=== PATIENT | female | born 1940 | race Caucasian/White ===

== ENCOUNTER → 2019-12-25 | Outpatient (CLI) | payer MEDICARE | LOC: COL.RAD 12:50 | DX: I65.23 Occlusion and stenosis of bilateral carotid arteries (principal); E78.5 Hyperlipidemia, unspecified; I10 Essential (primary) hypertension; F17.218 Nicotine dependence, cigarettes, with other nicotine-induced disorders; J43.9 Emphysema, unspecified; E01.0 Iodine-deficiency related diffuse (endemic) goiter; R91.1 Solitary pulmonary nodule | CPT/HCPCS: Q9967 ==

== ENCOUNTER 2020-11-03 13:37 | Inpatient (IN) | payer MEDICARE ==
[~2020-11-03] VITALS: Ht 170.2 cm; Wt 78.1 kg
[2020-11-03 14:36] LABS: BASO % 0.3 % (0.0-2.0); GRAN # 4.6 (1.4-6.5); GRAN % 68.9 % (42.2-75.2); HEMATOCRIT 45.9 % (37.0-47.0); HEMOGLOBIN 15.4 g/dl (12.5-16.0); LYMPH # 1.2 (1.2-3.4); MEAN CELL VOLUME 87 fl (80.0-100.0); MEAN CORPUSCULAR HEMOGLOBIN 29 pg (27.0-31.0); MEAN CORPUSCULAR HGB CONC 34 g/dl (33.0-37.0); MEAN PLATELET VOLUME 11.3 fl (7.4-10.4); MONO # 0.8 (0.1-0.6); MONO % 12.2 % (1.7-9.3); PLATELET COUNT 120 K/mm3 (130-400); RED BLOOD COUNT 5.28 M/mm3 (4.10-5.30); REDCELL DISTRIBUTION WIDTH-CV 13.3 % (11.5-14.5)
[2020-11-03 15:02] LABS: PROTHROMBIN TIME 74.2 SECONDS (9.7-12.8)
[2020-11-03] MEDS ORDERED: NORVASC 10MG10 MG PO (15:02)
[2020-11-03 15:03] LABS: INR 6.6 (0.8-3.0)
[2020-11-03] MEDS ORDERED: PRINIVIL40 MG PO (15:03)
[2020-11-03] MEDS ORDERED: COREG 3.123.125 MG/T PO (15:03)
[2020-11-03] MEDS ORDERED: LIPITOR 80MG80 MG PO (15:03)
[2020-11-03 15:04] LABS: ALANINE AMINOTRANSFERASE 39 U/L (4-34); ALBUMIN 3.8 gm/dL (3.5-5.0); ALKALINE PHOSPHATASE 101 U/L (50-136); ANION GAP 6 mmol/L (7-16); AST,SGOT 48 U/L (15-37); BILIRUBIN,TOTAL 0.9 mg/dL (0.0-1.0); BLOOD UREA NITROGEN 13 mg/dL (7-17); CALCIUM 8.6 mg/dL (8.4-10.2); CARBON DIOXIDE 32 mmol/L (22-30); CHLORIDE 101 mmol/L (98-107); CREATININE, serum 0.56 (0.52-1.25); GLUCOSE 112 mg/dL (74-106); POTASSIUM 3.6 mmol/L (3.4-5.0); SODIUM 138 mmol/L (137-145); TOTAL PROTEIN 7.4 gm/dL (6.4-8.2)
[2020-11-03] MEDS ORDERED: COUMADIN 5MG5 MG/TAB PO (15:04)
[2020-11-03] MEDS ORDERED: K-DUR 10 MEQ T10 MEQ PO (15:04)
[2020-11-03] MEDS ORDERED: VITAMIN D31000 I1 PO (15:05)
[2020-11-03] MEDS ORDERED: ASPIRIN 81M81 MG/TA2 PO (15:05)
[2020-11-03] MEDS ORDERED: COUMADIN 22.5 MG/TAB PO (15:05)
[2020-11-03 15:18] LABS: TROPONIN-I < 0.012 ng/mL (0.000-0.035)
[2020-11-03 19:01] LABS: ALBUMIN 3.9 gm/dL (3.5-5.0); BILIRUBIN UNCONJUGATED 0.5 mg/dL (0.0-1.1); BILIRUBIN,DIRECT 0.2 mg/dL (0.0-0.4); BILIRUBIN,TOTAL 0.7 mg/dL (0.0-1.0); TOTAL PROTEIN 7.5 gm/dL (6.4-8.2)
[2020-11-03 20:52] VITALS: BP 114/77; PULSE 97; TEMP 98
--- NOTE | 2020-11-03 21:12 | NUR ---
PT GRANDMAGIMIKE CALLED FOR UPDATE, PRIVACY PASSCODE RECEIVED. GRANDDAUGHTER, TRINH PH([phone]) UPDATED ON PLAN OF CARE, ALL QUESTIONS ANSWERED TO BEST OF ABILITY. GIVEN PT'S DAUGHTER, TENNILLE'S NUMBER TO CALL FOR UPDATES WELL PH([phone]).
--- NOTE | 2020-11-03 21:43 | NUR ---
PT ALERT AND ORIENTED. PT ABLE TO AMBULATE TO RESTROOM, TOLERATED WELL. PT SPO2 SATURATION AT 92% ON 2L O2. PT DENIES SOA OR PAIN AT THIS TIME. PT HAS GENERALIZED BRUISING ON BILATERAL ARMS. PT HAS LEATHERY SKIN AND REPORTS NON-PITTING EDEMA ON BILATERAL LOWER EXTREMITIES. PT DORSALIS PEDIS AND POSTERIOR TIBIAL PULSES 2+ BILATERALLY, CAP REFILL <3S. PT DENIES OTHER NEEDS AT THIS TIME.
[2020-11-03 23:16] VITALS: BP 124/58; PULSE 91; TEMP 98
[2020-11-04 03:24] VITALS: BP 126/60; PULSE 67; TEMP 97.8
--- NOTE | 2020-11-04 05:13 | NUR ---
PT CONTINUING ON PLAN OF CARE. PT OXYGEN NEEDS INCREASED TO 4L PER NASAL CANNULA. PT DENIED PAIN THROUGHOUT SHIFT. PT ABLE TO AMBULATE INDEPENDENTLY IN ROOM. NO OTHER NEEDS EXPRESSED AT THIS TIME.
[2020-11-04 08:27] LABS: BASO % 0.2 % (0.0-2.0); GRAN # 5.1 (1.4-6.5); GRAN % 80.9 % (42.2-75.2); HEMATOCRIT 45.4 % (37.0-47.0); HEMOGLOBIN 14.8 g/dl (12.5-16.0); LYMPH # 0.8 (1.2-3.4); LYMPH % 12.2 % (20.0-51.0); MEAN CELL VOLUME 89 fl (80.0-100.0); MEAN CORPUSCULAR HEMOGLOBIN 29 pg (27.0-31.0); MEAN CORPUSCULAR HGB CONC 33 g/dl (33.0-37.0); MONO # 0.4 (0.1-0.6); MONO % 6.2 % (1.7-9.3); PLATELET COUNT 146 K/mm3 (130-400); RED BLOOD COUNT 5.09 M/mm3 (4.10-5.30); REDCELL DISTRIBUTION WIDTH-CV 13.2 % (11.5-14.5)
[2020-11-04 08:34] LABS: CALCIUM 8.2 mg/dL (8.4-10.2); CREATININE, serum 0.5 (0.52-1.25); POTASSIUM 3.9 mmol/L (3.4-5.0)
--- NOTE | 2020-11-04 08:46 | NUR ---
Pt awake in bed upon entry. No C/O pain at this time. Shift assessment complete, left Pt call light in reach, bed in lowest position.
[2020-11-04 09:31] LABS: PROTHROMBIN TIME 76.1 SECONDS (9.7-12.8)
[2020-11-04 09:32] LABS: INR 6.7 (0.8-3.0)
[2020-11-04 09:40] VITALS: BP 119/67; PULSE 86; TEMP 97.6
--- NOTE | 2020-11-04 10:31 | NUR ---
The patient is COVID positive. SW contacted the patient's room phone to discuss discharge plan. The patient lives in [place] with her 34 year-old grandson, Feliz. She reports independence with ADLs and does not have any DME. The patient's PCP is Dr. Lm Nieto and she receives her medications from [facility]. She reports no difficulties obtaining her meds. The patient does not have a DPOA-HC, but she was interested in obtaining a form. SW to collaborate with the patient's RN with getting the patient a form. The patient is not and she has four children: Liya (ph#[phone]), Shannon (ph#[phone]), Rivas, and Naila. The patient states that she will be staying with her daughter, Shannon, in [place] upon discharge. The patient is currently requiring 4 liters of oxygen. SW to continue to monitor. *Discharge plan: staying with her daughter*
[2020-11-04 12:13] VITALS: BP 106/71; PULSE 95; TEMP 98.4
[2020-11-04 16:31] VITALS: BP 132/57; PULSE 75; TEMP 98.1
[2020-11-04 20:16] VITALS: BP 118/52; PULSE 82; TEMP 97.8
[2020-11-05 00:09] VITALS: BP 121/65; PULSE 81; TEMP 98
--- NOTE | 2020-11-05 08:00 | NUR ---
Assessment complete. Pt sitting up on side of bed, A&O x 4, denies pain at this time. Rhonchi noted to right lung with left lung clear but diminished. Saline lock IV to right forearm without s/s of complications. No further needs reported. Call light in reach.
[2020-11-05 08:06] LABS: BASO % 0.2 % (0.0-2.0); GRAN # 9.7 (1.4-6.5); GRAN % 82.5 % (42.2-75.2); HEMATOCRIT 48.1 % (37.0-47.0); HEMOGLOBIN 15.2 g/dl (12.5-16.0); LYMPH # 1.2 (1.2-3.4); LYMPH % 10.1 % (20.0-51.0); MEAN CELL VOLUME 93 fl (80.0-100.0); MEAN CORPUSCULAR HEMOGLOBIN 29 pg (27.0-31.0); MEAN CORPUSCULAR HGB CONC 32 g/dl (33.0-37.0); MEAN PLATELET VOLUME 11.3 fl (7.4-10.4); MONO # 0.8 (0.1-0.6); MONO % 6.5 % (1.7-9.3); PLATELET COUNT 180 K/mm3 (130-400); RED BLOOD COUNT 5.19 M/mm3 (4.10-5.30); REDCELL DISTRIBUTION WIDTH-CV 13.4 % (11.5-14.5)
[2020-11-05 08:17] VITALS: BP 138/63; PULSE 91; TEMP 97.4
[2020-11-05 08:17] LABS: C-REACTIVE PROTEIN 0.9 mg/dL (0.0-0.9); CALCIUM 8.7 mg/dL (8.4-10.2); CREATININE, serum 0.53 (0.52-1.25); INR 5.9 (0.8-3.0); POTASSIUM 3.8 mmol/L (3.4-5.0); PROTHROMBIN TIME 66.1 SECONDS (9.7-12.8)
[2020-11-05 11:50] VITALS: BP 129/65; PULSE 92; TEMP 98.4
[2020-11-05 16:10] VITALS: BP 131/62; PULSE 91; TEMP 98.4
--- NOTE | 2020-11-05 17:40 | NUR ---
Sched medications administered per orders. Pt still on 2.5 L/min O2 via NC, uneventful shift. Pt denies other needs. Call light in reach.
--- NOTE | 2020-11-05 18:47 | NUR ---
Report with SANGITA Huddleston.
[2020-11-05 20:34] VITALS: BP 115/62; PULSE 64; TEMP 97.2
[2020-11-06 00:35] VITALS: BP 123/59; PULSE 56; TEMP 97.7
[2020-11-06 04:13] VITALS: BP 124/86; PULSE 81; TEMP 98.6
--- NOTE | 2020-11-06 05:16 | NUR ---
Resting quietly, denies pain, tolerating O2@2L per NC w/o issue, VS stable, will continue to monitor.
[2020-11-06 07:57] VITALS: BP 128/95; PULSE 87; TEMP 97.8
--- NOTE | 2020-11-06 08:29 | NUR ---
SCHEDULED MEDICATIONS GIVEN. SHIFT ASSESSMENT PREFORMED. PATIENT CURRENTLY REQUIRING 2 L O2 VIA NASAL CANNULA. PATIENT STATES THAT SHE HAS HAD ONE SMALL EPISODE OF DIARHEA THIS AM, BUT DENIES ANY N/V. PATIENT DENIES ANY PAIN, DISCOMFORT, SOA, OR FURTHER NEEDS AT THIS TIME. CALL LIGHT IN REACH. VSS.
[2020-11-06 09:00] LABS: ALBUMIN 3.6 gm/dL (3.5-5.0); BILIRUBIN,TOTAL 0.6 mg/dL (0.0-1.0); CALCIUM 8.7 mg/dL (8.4-10.2); CREATININE, serum 0.49 (0.52-1.25); POTASSIUM 3.8 mmol/L (3.4-5.0); TOTAL PROTEIN 7.1 gm/dL (6.4-8.2)
[2020-11-06 09:01] LABS: BASO % 0.1 % (0.0-2.0); GRAN # 8.3 (1.4-6.5); GRAN % 80.8 % (42.2-75.2); HEMATOCRIT 46.8 % (37.0-47.0); HEMOGLOBIN 15.3 g/dl (12.5-16.0); LYMPH # 1.1 (1.2-3.4); LYMPH % 11.2 % (20.0-51.0); MEAN CELL VOLUME 88 fl (80.0-100.0); MEAN CORPUSCULAR HEMOGLOBIN 29 pg (27.0-31.0); MEAN CORPUSCULAR HGB CONC 33 g/dl (33.0-37.0); MONO # 0.7 (0.1-0.6); MONO % 7.1 % (1.7-9.3); PLATELET COUNT 187 K/mm3 (130-400); RED BLOOD COUNT 5.32 M/mm3 (4.10-5.30); REDCELL DISTRIBUTION WIDTH-CV 13.4 % (11.5-14.5)
[2020-11-06 12:12] VITALS: BP 121/76; PULSE 93; TEMP 97.6
[2020-11-06 12:22] LABS: INR 4.1 (0.8-3.0)
[2020-11-06 12:27] LABS: PROTHROMBIN TIME 45.8 SECONDS (9.7-12.8)
--- NOTE | 2020-11-06 13:59 | NUR ---
PATIENT'S GRANDDAUGHTER UPDATED ON LAB RESULTS.
[2020-11-06 16:00] VITALS: BP 118/70; PULSE 87; TEMP 98.8
--- NOTE | 2020-11-06 18:30 | NUR ---
REPORT GIVEN TO TURBINE OPERATOR. VSS. PATIENT CURRENTLY REQUIRING 2 L OF O2. CALL LIGHT IN REACH.
[2020-11-06 20:09] VITALS: BP 132/74; PULSE 89; TEMP 97.7
[2020-11-07 00:12] VITALS: BP 126/57; PULSE 84; TEMP 98.2
[2020-11-07 05:13] VITALS: BP 130/60; PULSE 86; TEMP 98.4
[2020-11-07 08:00] VITALS: BP 141/75; PULSE 88; TEMP 97.9
[2020-11-07 08:12] LABS: HEMATOCRIT 48.9 % (37.0-47.0); HEMOGLOBIN 16.1 g/dl (12.5-16.0); MEAN CELL VOLUME 88 fl (80.0-100.0); MEAN CORPUSCULAR HEMOGLOBIN 29 pg (27.0-31.0); MEAN CORPUSCULAR HGB CONC 33 g/dl (33.0-37.0); MEAN PLATELET VOLUME 11.3 fl (7.4-10.4); PLATELET COUNT 202 K/mm3 (130-400); RED BLOOD COUNT 5.58 M/mm3 (4.10-5.30); REDCELL DISTRIBUTION WIDTH-CV 13.3 % (11.5-14.5)
[2020-11-07 08:15] LABS: INR 2.3 (0.8-3.0); PROTHROMBIN TIME 26.2 SECONDS (9.7-12.8)
[2020-11-07 08:18] LABS: CALCIUM 8.7 mg/dL (8.4-10.2); CREATININE, serum 0.63 (0.52-1.25); POTASSIUM 3.9 mmol/L (3.4-5.0)
--- NOTE | 2020-11-07 11:52 | NUR ---
RT notified NATE that the patient qualified for 2 liters of oxygen. The hospitalist reports that she will be ready to discharge the patient today. SW contacted the patient to update and inform of DME companies. The patient is agreeable to getting her oxygen from [facility]. She states that she still plans on staying with her daughter when she leaves here. SW read the IM form outloud to the patient. The patient verbalized understanding and gave SW approval to sign the form on her behalf. SW contacted and faxed the patient's oxygen order to Luisa at [facility]. Luisa reports that they would not be able to deliver the portable oxygen to the patient's room until later this afternoon and asked if family would want to pharmacy picking tech the oxygen. NATE contacted the patient's daughter, Shannon, and updated her on the above. Shannon reports that her sister, Liya, will be picking up the patient today. She reports that Liya can pharmacy picking tech the oxygen from [facility], befor picking up the patient. SW updated Luisa at [facility]. SW to update the patient's RN on the above. The patient is to discharge back home with her daughter today, 11/07. No additional needs at this time.
[2020-11-07] MEDS ORDERED: DECADRON6 MG PO (11:55)
[2020-11-07] MEDS ORDERED: MONODOX100 PO (11:56)
[2020-11-07] MEDS ORDERED: RT Albuterol HFA MDI IH (11:58)
[2020-11-07] MEDS ORDERED: PROAIR HFA0.09 MG/AC IH (11:59)
[2020-11-07 12:48] VITALS: BP 123/60; PULSE 90; TEMP 98.7
--- NOTE | 2020-11-07 15:37 | NUR ---
SCHEDULED MEDICATIONS GIVEN. SHIFT ASSESSMENT PREFORMED. PATIENT CURRHECTORLTY REQUIRNG 2 L OF 02 AND WILL GO HOME WITH OXYGEN. DISCHARGE INSTRUCTIONS/EDUCATION GIVEN. ALL QUESTIONS ANSWERED. IV DC'D, CATHETER INTACT, NO SIGNS OF PHLEBITIS. VSS. DENIES ANY FURTHER QUESTIONS, CONCERNS, PAIN, DISCOMFORT, OR FURTHER NEEDS AT THIS TIME. CALL LIGHT IN REACH.
--- NOTE | 2020-11-07 16:00 | NUR ---
PATIENT ESCORTED OUT OF THE BUILDING VIA WC, ESCORTED BY VIA [facility] STAFF. DAUGHTER MARIO TRANSPORTING HOME.
== END 2020-11-07 16:01 | disposition home or self-care (01) | DRG 177 ==
LOC: COL.ER 13:37 → MEDICAL 15:46
PROVIDERS: Emergency Medicine; Internal Medicine; ADMIT Student in an Organized Health Care Education/Training Program
PROC: XW033E5 Introduction of Remdesivir Anti-infective into Peripheral Vein, Percutaneous Approach, New Technology Group 5 (ICD-10-PCS; principal; 2020-11-04)
DX: U07.1 COVID-19 (principal); J12.82 Pneumonia due to coronavirus disease 2019; J96.01 Acute respiratory failure with hypoxia; R65.10 Systemic inflammatory response syndrome (SIRS) of non-infectious origin without acute organ dysfunction; I48.91 Unspecified atrial fibrillation; E78.5 Hyperlipidemia, unspecified; F17.210 Nicotine dependence, cigarettes, uncomplicated; Z20.822 Contact with and (suspected) exposure to COVID-19; D69.6 Thrombocytopenia, unspecified; Z79.01 Long term (current) use of anticoagulants; Z90.710 Acquired absence of both cervix and uterus; Z79.82 Long term (current) use of aspirin
CPT/HCPCS: 99223-AI; 99231-AI; 99232-AI; 99239; J0696; J1100; J7030; J7050; J8540

== ENCOUNTER 2021-06-30 00:03 | Emergency (ER) | payer MEDICARE ==
[~2021-06-30] VITALS: Ht 170.2 cm; Wt 72.7 kg
[~2021-06-30 00:03] MED LIST: ASPIRIN 81M81 MG/TA2 PO; COREG 3.123.125 MG/T PO; COUMADIN 22.5 MG/TAB PO; COUMADIN 5MG5 MG/TAB PO; DECADRON6 MG PO; K-DUR 10 MEQ T10 MEQ PO; LIPITOR 80MG80 MG PO; MONODOX100 PO; NORVASC 10MG10 MG PO; PRINIVIL40 MG PO; PROAIR HFA0.09 MG/AC IH; RT Albuterol HFA MDI IH; VITAMIN D31000 I1 PO
[2021-06-30 00:05] VITALS: TEMP 97.7
[2021-06-30 01:53] LABS: ARTERIAL BLD GAS O2 SATURATION 97.5 % (92-100); ARTERIAL BLOOD GAS BASE EXCESS -1.5 (-2-2); ARTERIAL BLOOD GAS HCO3 23.5 meq/L (22-26); ARTERIAL BLOOD GAS PCO2 40.4 mmHg (35-45); ARTERIAL BLOOD GAS pH 7.38 (7.35-7.45)
[2021-06-30 02:06] LABS: INR 3.3 (0.8-3.0); PARTIAL THROMBOPLASTIN TIME 46.8 SECONDS (26.0-37.0); PROTHROMBIN TIME 37.8 SECONDS (9.7-12.8)
[2021-06-30 02:08] LABS: ALANINE AMINOTRANSFERASE 20 U/L (0-55); ALBUMIN 4.3 gm/dL (3.4-4.8); ALKALINE PHOSPHATASE 126 U/L (40-150); ANION GAP 12 mmol/L (7-16); AST,SGOT 24 U/L (5-34); BILIRUBIN,TOTAL 1.1 mg/dL (0.2-1.2); BLOOD UREA NITROGEN 11 mg/dL (10-20); CALCIUM 9.1 mg/dL (8.4-10.2); CARBON DIOXIDE 22 mmol/L (23-31); CHLORIDE 107 mmol/L (98-107); CREATININE, serum 0.79 mg/dL (0.57-1.11); GLUCOSE 170 mg/dL (70-99); POTASSIUM 4.4 mmol/L (3.5-4.5); SODIUM 141 mmol/L (136-145); TOTAL PROTEIN 7.5 gm/dL (6.2-8.1); TROPONIN-I < 0.010 ng/mL (0.00-0.033); TSH w REFLEX 1.074 uIU/mL (0.350-4.940)
[2021-06-30 02:09] LABS: BASO # 0.1 K/mm3 (0.0-0.2); BASO % 0.7 % (0.0-2.0); EOS # 0.1 K/mm3 (0.0-0.7); EOS % 1.2 % (0.0-4.0); GRAN # 6.7 K/mm3 (1.4-6.5); GRAN % 77.7 % (42.2-75.2); HEMATOCRIT 46.9 % (37.0-47.0); HEMOGLOBIN 15.2 g/dl (12.5-16.0); LYMPH # 1.4 K/mm3 (1.2-3.4); LYMPH % 16.5 % (20.0-51.0); MEAN CELL VOLUME 92 fl (80.0-100.0); MEAN CORPUSCULAR HEMOGLOBIN 30 pg (27-31); MEAN CORPUSCULAR HGB CONC 32 g/dl (33.0-37.0); MONO # 0.3 K/mm3 (0.1-0.6); MONO % 3.7 % (1.7-9.3); PLATELET COUNT 151 K/mm3 (130-400); RED BLOOD COUNT 5.11 M/mm3 (4.10-5.30); REDCELL DISTRIBUTION WIDTH-CV 13.2 % (11.5-14.5)
[2021-06-30 02:15] VITALS: BP 134/66; PULSE 86
== END 2021-06-30 02:30 | disposition short-term general hospital (02) ==
LOC: COL.ER 01:18
PROVIDERS: Emergency Medicine; Nurse Practitioner
DX: I62.9 Nontraumatic intracranial hemorrhage, unspecified (principal); I48.91 Unspecified atrial fibrillation; R03.0 Elevated blood-pressure reading, without diagnosis of hypertension; Z86.73 Personal history of transient ischemic attack (TIA), and cerebral infarction without residual deficits; Z79.01 Long term (current) use of anticoagulants
CPT/HCPCS: A4314; J0330; J1100; J1953; J2405; J2704; J3010; J7050; J7168; Q9967